=== PATIENT | female | born 1995 | race Caucasian/White ===

== ENCOUNTER 2018-03-17 20:59 | Emergency (ER) | payer BC, OTHER, SELFPAY ==
[2018-03-17 21:28] VITALS: BP 141/98
[2018-03-17] MEDS ORDERED: Ibuprofen 600 MG Tab PO ONE (22:24)
--- NOTE | 2018-03-17 22:49 | EDM.PDOC ---
ED HPI GENERAL MEDICAL PROBLEM - General Chief Complaint: Lower Extremity Injury/Pain Stated Complaint: FELL AND INJURIED RIGHT ANKLE Time Seen by Provider: 03/17/18 22:18 Source of Information: Reports: Patient History Limitations: Reports: No Limitations - History of Present Illness INITIAL COMMENTS - FREE TEXT/NARRATIVE: The patient states that her right foot went through the board of a wooden deck around 20:45 tonight. She presents with pain to the lateral aspect of her right ankle with ambulation, with pain radiating up her right leg to the posterior knee. The patient reports a "hairline fracture" of one of her ankles or feet in 2011, not severe enough to require any treatment. The patient's PCP is Mali Dick. Treatments REHABILITATION PROGRAM MANAGER: Reports: Other (see below) Other Treatments REHABILITATION PROGRAM MANAGER: ice applied upon arrival to the room Right Ankle Pain Score (Numeric/FACES): 9 - Related Data Allergies Allergy/AdvReac Type Severity Reaction Status Date / Time tree nut Allergy Severe Anaphylactic Verified 10/01/16 13:05 Shock watermelon Allergy Severe Anaphylactic Verified 10/01/16 13:05 Shock Penicillins Allergy Hives Verified 10/01/16 13:05 Home Meds: Home Meds Amitriptyline [Elavil] 25 mg PO BEDTIME 10/01/16 [History] Past Medical History Psychiatric History: Reports: Depression Endocrine/Metabolic History: Reports: Obesity/BMI 30+ - Past Surgical History Other Musculoskeletal Surgeries/Procedures:: acl/mcl repair Social & Family History - Family History Family Medical History: Noncontributory - Tobacco Use Smoking Status *Q: Never Smoker - Caffeine Use Caffeine Use: Reports: Coffee, Soda, Tea - Recreational Drug Use Recreational Drug Use: No Review of Systems - Review of Systems Review Of Systems: ROS reveals no pertinent complaints other than HPI. ED EXAM, GENERAL - Physical Exam Exam: See Below Exam Limited By: No Limitations General Appearance: Alert, WD/WN, No Apparent Distress Extremities: Other (There is mild swelling to the lateral aspect of the patient' s right ankle, which is tender. There is no swelling elsewhere to the ankle, and no tenderness to the anterior or posterior syndesmosis, or medial malleolus. There is possible swelling to the dorsal aspect of the right foot, but no other visible abnormality, such as erythema, ecchymosis, or abrasion. There is tenderness to the dorsal aspect of the right foot, but it is non- focal. The patient reports pain extending up her right leg, but the right leg itself is nontender. Neurovascular status of the right lower extremity is intact.) Course - Vital Signs Last Recorded V/S: Last Vital Signs Temp 37.2 C 03/17/18 21:28 Pulse 106 H 03/17/18 21:28 Resp 20 03/17/18 21:28 BP 141/98 H 03/17/18 21:28 Pulse Ox 100 03/17/18 21:28 - Orders/Labs/Meds Meds: Medications Discontinued Medications Generic Name Dose Route Start Last Admin Trade Name Nilesh PRN Reason Stop Dose Admin Ibuprofen 600 mg 03/17/18 22:24 03/17/18 22:33 Motrin PO 03/17/18 22:25 600 mg ONETIME ONE Administration - Re-Assessments/Exams Free Text/Narrative Re-Assessment/Exam: 03/17/18 22:49 4-view radiographs of the right ankle appear to be grossly normal. No fracture or dislocation identified. Formal read per the Radiologist pending. 03/17/18 23:13 4-view radiographs of the right foot appear to be grossly normal. No fracture or dislocation identified. Formal read per the Radiologist pending. 03/17/18 23:29 The patient appears to have a mild sprain to the lateral aspect of her right ankle. She has been placed into an Aircast, which I will have her wear for 1 week, before she starts ambulating without it. I'm recommending ice and elevation for 2 days, and ibuprofen as needed for discomfort. Departure - Departure Time of Disposition: 23:29 Disposition: Home, Self-Care 01 Condition: Good Clinical Impression: Mild sprain of right ankle - Discharge Information Instructions: Ankle Sprain, [id number] Referrals: Mali Dick FORMS EXAMINER [Primary Care Provider] - Forms: ED Department Discharge Additional Instructions: You were seen in the emergency room after stepping through a board on a wooden deck, injuring your right ankle and foot. Workup in the ER included x-rays of your right ankle and foot. Your x-rays returned completely normal. No broken bones. Based on your examination, you likely have a mild sprain to your right ankle. You have been placed into an Aircast. Apply this each morning, and remove at bedtime. Elevate and ice her right ankle for the next 2 days, to help minimize swelling. Take [id number] ibuprofen as needed for discomfort. Stop wearing the Aircast after 1 week and begin ambulating as tolerated, even though it will likely still be sore. Follow-up with your PCP, Mali Dick, as needed. If any other problems, please do not hesitate to return to the ER.
--- NOTE | 2018-03-19 11:27 | CR ---
Right foot: Four views of the right foot were obtained. Comparison: No prior foot exam. Soft tissue swelling is identified. Joint spaces are preserved. No fracture, dislocation or other bony abnormality is seen. Impression: 1. Soft tissue swelling. No bony abnormality is identified on right foot exam. Diagnostic code #2
--- NOTE | 2018-03-19 11:27 | CR ---
Right ankle: Four views of the right ankle were obtained. Comparison: Previous right ankle exam of 08/25/10. Soft tissue swelling is seen. Ankle mortise is symmetric. No fracture, dislocation or other bony abnormality is seen. Impression: 1. Mild soft tissue swelling. No acute bony abnormality is identified. Diagnostic code #2
== END 2018-03-17 23:38 | disposition home or self-care (01) ==
LOC: JD.ED 20:59
DX: S93.401A Sprain of unspecified ligament of right ankle, initial encounter (principal); E66.9 Obesity, unspecified; Z91.018 Allergy to other foods; Z88.0 Allergy status to penicillin; W22.8XXA Striking against or struck by other objects, initial encounter
CPT/HCPCS: 73610; 73630; 99283; A9270

== ENCOUNTER 2022-05-04 13:41 | Inpatient (IN) | payer BC ==
[~2022-05-04 13:41] MED LIST: Bupivacaine 0.25% 10 ML SDV ONE
[2022-05-04] MEDS ORDERED: Nalbuphine HCl 10 MG/ 1ML Amp IVPUSH PRN (15:30)
[2022-05-04] MEDS ORDERED: Oxytocin/Lactated Ringers 10 UNIT/1,000 ML BAG IV SCH ×2 (15:30)
[2022-05-04] MEDS ORDERED: Misoprostol 25 MCG (1/4 of 100 MCG) Tab VAG ONE (15:50)
[2022-05-04] MEDS ORDERED: ceFAZolin 2 GM in Sodium Chloride 0.9% 50 ML IV ONE (16:00)
[2022-05-04] MEDS: Lactated Ringers 1,000 ML IV SCH (16:10)
[2022-05-04] MEDS ORDERED: Misoprostol 25 MCG (1/4 of 100 MCG) Tab VAG PRN (19:55)
[2022-05-05] MEDS: ceFAZolin 1 GM in Sodium Chloride 0.9% 50 ML IV SCH ×3 (00:08→16:23)
[2022-05-05] MEDS ORDERED: diphenhydrAMINE 50 MG/ML SDV IVPUSH PRN (01:24)
[2022-05-05] MEDS ORDERED: Ondansetron 4 MG/2 ML SDV ONE (01:28)
[2022-05-05] MEDS ORDERED: fentaNYL 100 MCG/2 ML SDV ONE (01:28)
[2022-05-05] MEDS: fentaNYL 100 MCG/2 ML SDV EPIDUR PRN ×2 (01:35→11:14)
[2022-05-05] MEDS: Bupivacaine/fentaNYL/NS 100 ML Bag EPIDUR PRN ×2 (02:05→08:21)
[2022-05-05] MEDS ORDERED: Ondansetron 4 MG/2 ML SDV IVPUSH PRN (07:09)
[2022-05-05] MEDS: ePHEDrine 50 MG/ML SDV IVPUSH PRN ×2 (10:58→11:01)
[2022-05-05] MEDS: Lactated Ringers 1,000 ML IV SCH (11:12)
[2022-05-05] MEDS ORDERED: Acetaminophen 325 MG Tab PO PRN (16:24)
[2022-05-05] MEDS ORDERED: Benzocaine/Menthol 20%-0.5% Spray 78 GM Cannister TOP PRN (16:24)
[2022-05-05] MEDS ORDERED: Docusate Sodium 100 MG Cap PO PRN (16:24)
[2022-05-05] MEDS ORDERED: Witch Hazel Medicated Pads 40/Jar TOP PRN (16:24)
[2022-05-06] MEDS: Ibuprofen 600 MG Tab PO PRN ×3 (00:57→15:11)
[2022-05-07] MEDS: Ibuprofen 600 MG Tab PO PRN (08:32)
[2022-05-07 10:58] VITALS: BP 122/73; PULSE 81
== END 2022-05-07 11:47 | disposition home or self-care (01) | DRG 560 ==
LOC: JD.OBCHECK 13:41 → JD.OB 13:47 → JD.OBCHECK 20:19 → JD.OB 20:20 → OBSVTOIN 20:20 → JD.OB 05-05 14:56
PROVIDERS: ADMIT Obstetrics & Gynecology; ATTEND Obstetrics & Gynecology
PROC: 10E0XZZ Delivery of Products of Conception, External Approach (ICD-10-PCS; principal; 2022-05-04)
PROC: 10907ZC Drainage of Amniotic Fluid, Therapeutic from Products of Conception, Via Natural or Artificial Opening (ICD-10-PCS; 2022-05-04)
PROC: 3E0P7VZ Introduction of Hormone into Female Reproductive, Via Natural or Artificial Opening (ICD-10-PCS; 2022-05-04)
PROC: 3E033VJ Introduction of Other Hormone into Peripheral Vein, Percutaneous Approach (ICD-10-PCS; 2022-05-04)
PROC: 3E0R3BZ Introduction of Anesthetic Agent into Spinal Canal, Percutaneous Approach (ICD-10-PCS; 2022-05-04)
DX: O99.824 Streptococcus B carrier state complicating childbirth (principal); Z3A.37 37 weeks gestation of pregnancy; Z37.0 Single live birth; O14.94 Unspecified pre-eclampsia, complicating childbirth
CPT/HCPCS: 36415; 51701; 51702; 59025; 59409; 82565; 82570; 82947; 83615; 84156; 84450; 84460; 84520; 84550; 85025; 86592; 86850; 86900; 86901; 87641; A9270-GY; J0690; J1200; J2405; J2590; J3010; J3490; J7120

== ENCOUNTER 2022-06-09 21:48 | Emergency (ER) | payer BC ==
[2022-06-10 00:11] VITALS: BP 139/97; PULSE 89
[2022-06-10] MEDS ORDERED: Sodium Chloride 0.9% 10 ML Syringe FLUSH PRN (00:15)
[2022-06-10] MEDS ORDERED: Nitrofurantoin Monohydrate/Macrocrystalline 100 MG Cap PO STA (02:31)
== END 2022-06-10 03:10 | disposition home or self-care (01) ==
LOC: JD.ED 21:48
DX: R06.4 Hyperventilation (principal); N39.0 Urinary tract infection, site not specified; Z91.018 Allergy to other foods; Z88.0 Allergy status to penicillin
CPT/HCPCS: 36415; 36600; 71046; 80053; 81001; 82803; 83735; 84443; 84484; 85025; 85379; 87086; 93005; 99285; A9270

== ENCOUNTER 2025-04-30 19:21 | Emergency (ER) | payer BC ==
[2025-04-30] MEDS ORDERED: Sodium Chloride 0.9% 10 ML Syringe FLUSH PRN (19:48)
[2025-04-30 20:21] LABS: BASOPHILS ABSOLUTE AUTO 0.0 K/mm3 (0.0-0.2); BASOPHILS PERCENT AUTO 0.2 % (0.0-1.0); EOSINOPHILS ABSOLUTE AUTO 0.1 K/mm3 (0.0-0.4); EOSINOPHILS PERCENT AUTO 0.5 % (0.0-6.0); IMMATURE GRAN ABSOLUTE AUTO 0.05 K/mm3 (0.00-0.05); IMMATURE GRAN PERCENT AUTO 0.3 % (0.0-0.4); LYMPHOCYTES ABSOLUTE AUTO 1.4 K/mm3 (1.0-4.8); LYMPHOCYTES PERCENT AUTO 9.4 % (24.0-44.0); MEAN PLATELET VOLUME 8.7 fl (9.4-12.3); MONOCYTES ABSOLUTE AUTO 0.7 K/mm3 (0.0-0.8); MONOCYTES PERCENT AUTO 4.7 % (0.0-8.0); NEUTROPHILS ABSOLUTE AUTO 12.3 K/mm3 (1.8-7.7); NEUTROPHILS PERCENT AUTO 84.9 % (41.0-71.0); NRBC ABSOLUTE 0.00 (0.00-0.02); NRBC PERCENT 0.0 % (0.0-0.2); PLATELET COUNT,PLT 369 K/mm3 (150-400); RED BLOOD CELL COUNT 5.39 M/mm3 (4.10-5.30); WHITE BLOOD CELL COUNT,WBC 14.52 K/mm3 (3.9-11.3)
[2025-04-30 20:23] LABS: A/G RATIO 1.1 (1-2); ALANINE AMINOTRANSFERASE,ALT 49.0 U/L (14-59); ASPARTATE AMNIOTRANSFERASE,AST 23.0 U/L (15-37); BILIRUBIN TOTAL 0.9 mg/dL (0.2-1.0); BLOOD UREA NITROGEN,BUN 16.0 mg/dL (7-18); CARBON DIOXIDE,CO2 23.0 mEq/L (21-32); CHLORIDE,CL 104.0 mEq/L (98-107); CREATININE 1.1 mg/dL (0.55-1.02); EST CRCL DRUG DOSING (CG) 80.28 mL/min; ESTIMATED GFR 71.0 mL/min (>60); GLUCOSE RANDOM 131.0 mg/dL (70-99); POTASSIUM,K 4.2 mEq/L (3.5-5.1); PROTEIN TOTAL,TP 7.9 g/dl (6.4-8.2); SODIUM,NA 141.0 mEq/L (136-145)
[2025-04-30] MEDS: Ondansetron 4 MG/2 ML SDV IVPUSH ONE ×2 (20:25→22:36)
[2025-04-30 22:05] LABS: APPEARANCE,URINE CLEAR (Clear); GLUCOSE,URINE NEGATIVE (Negative); OCCULT BLOOD,URINE 2+ (Negative)
[2025-04-30 23:30] LABS: EPITHELIAL CELLS,URINE 0-5 /hpf (0-5)
[2025-04-30] MEDS: Hyoscyamine 0.125 MG Tab.SL SL ONE (23:31)
[2025-04-30 23:53] VITALS: BP 133/85; PULSE 80
== END 2025-04-30 23:52 | disposition home or self-care (01) ==
LOC: JD.ED 19:21
DX: K80.70 Calculus of gallbladder and bile duct without cholecystitis without obstruction (principal); I10 Essential (primary) hypertension; J45.909 Unspecified asthma, uncomplicated; K21.9 Gastro-esophageal reflux disease without esophagitis; E66.9 Obesity, unspecified; Z86.16 Personal history of COVID-19; Z79.899 Other long term (current) drug therapy; Z91.018 Allergy to other foods; Z68.41 Body mass index [BMI] 40.0-44.9, adult
CPT/HCPCS: 36415; 76705; 80053; 81001; 83690; 84703; 85025; 86140; 87086; 96361; 96374; 96375; 96376; 99284; A9270; J2405; J7030; J1171

== ENCOUNTER 2025-06-17 09:25 | Day surgery (SDC) | payer BC ==
[~2025-06-17 09:25] MED LIST changes: -Bupivacaine 0.25% 10 ML SDV ONE; +Sodium Chloride 0.9% 10 ML Syringe FLUSH PRN; +Sodium Chloride 0.9% 10 ML Syringe FLUSH SCH
[2025-06-17] MEDS: Lactated Ringers 1,000 ML IV SCH (09:45)
[2025-06-17] MEDS ORDERED: EPINEPHrine 1 MG/ML SDV ONE (09:55)
[2025-06-17] MEDS ORDERED: Sodium Chloride 0.9% 10 ML Syringe FLUSH PRN (10:05)
[2025-06-17] MEDS ORDERED: Propofol 200 MG/20 ML SDV ONE ×4 (10:10→12:16)
[2025-06-17] MEDS ORDERED: propofoL 500 MG/50 ML 50 ML ONE ×2 (10:10→12:01)
[2025-06-17] MEDS ORDERED: Ondansetron 4 MG/2 ML SDV ONE ×2 (10:12→12:04)
[2025-06-17] MEDS ORDERED: Dexamethasone 4 MG/ML 5 ML MDV ONE (10:12)
[2025-06-17] MEDS ORDERED: Lactated Ringers 1,000 ML IV SCH (10:15)
[2025-06-17] MEDS ORDERED: fentaNYL 250 MCG/5 ML SDV ONE (10:27)
[2025-06-17] MEDS: Scopalamine 1mg/3day Transdermal Patch TRDERM ONE (10:28)
[2025-06-17] MEDS: Ondansetron 4 MG/2 ML SDV IVPUSH SCH (10:29)
[2025-06-17] MEDS ORDERED: Ketamine HCL/NACL, ISO-OSM 50 MG/5 ML Syringe ONE (10:30)
[2025-06-17] MEDS ORDERED: Midazolam 1 MG/ML 2 ML SDV IVPUSH PRN (10:52)
[2025-06-17] MEDS: Midazolam 1 MG/ML 2 ML SDV IVPUSH ONE (11:10)
[2025-06-17] MEDS ORDERED: dexmedeTOMIDine HCl 200 MCG/2 ML SDV ONE (11:48)
[2025-06-17] MEDS ORDERED: Lactated Ringers 1,000 ML ONE (12:03)
[2025-06-17] MEDS ORDERED: Ketorolac 15 MG/ML SDV ONE (12:05)
[2025-06-17] MEDS ORDERED: Ondansetron 4 MG/2 ML SDV IVPUSH PRN (12:53)
[2025-06-17] MEDS: fentaNYL 100 MCG/2 ML SDV IVPUSH PRN (13:20)
[2025-06-17 16:17] VITALS: BP 148/90; PULSE 74
[2025-06-17] MEDS ORDERED: Sodium Chloride 0.9% 10 ML Syringe FLUSH SCH (21:00)
== END 2025-06-17 16:05 | disposition home or self-care (01) ==
LOC: JD.SDS 09:25
PROVIDERS: ATTEND Surgery
DX: K80.10 Calculus of gallbladder with chronic cholecystitis without obstruction (principal); I10 Essential (primary) hypertension; E11.9 Type 2 diabetes mellitus without complications; E66.9 Obesity, unspecified; Z68.30 Body mass index [BMI] 30.0-30.9, adult; Z91.018 Allergy to other foods; Z79.899 Other long term (current) drug therapy
CPT/HCPCS: 47562; 81025; A9270; J0169; J0665; J0690; J1100; J1885; J2250; J2405; J2704; J3010; J7120; 00790; J1171; J3490